=== PATIENT | male | born 1970 | race Two or more races ===

== ENCOUNTER 2018-03-18 15:07 | Emergency (ER) | payer MEDICAID ==
[~2018-03-18] VITALS: Ht 180.3 cm; Wt 90.7 kg
[~2018-03-18 15:07] MED LIST: BACTROBAN CR1 APPLIC TOPIC; CLINDAMYCIN HC300 MG ORAL; PROBIOTIC & AC1 EAC1 PO
[2018-03-18 15:39] VITALS: BP 134/82
--- NOTE | 2018-03-18 15:54 | Emergency Room Report ---
History of Present Illness General Chief Complaint: Wound Recheck/Suture Removal Source: Patient Present Illness HPI 47-year-old male patient presents ER for wound checks. Reports was seen in the ER 2 days ago and diagnosed with cellulitis at this right hand knuckle. Reports that he was given IV antibiotics and discharged with topical and oral antibiotics to home. Reports been taking the oral medication, pharmacy did not fill the topical. Reports symptoms have improved. Denies fever, chest pain, shortness of breath. Denies vomiting. Reports full range of motion of hand. His treated diabetes. Reports right-hand dominant. Allergies: Coded Allergies: No Known Allergies (Unverified , 03/16/18) Patient History Past Medical History: see triage record Reviewed Nursing Documentation: PMH: Agreed; PSxH: Agreed Nursing Documentation-PMH Past Medical History: No Stated History Review of Systems All Other Systems: negative except mentioned in HPI Physical Exam Vital Signs Date Time Temp Pulse Resp B/P (MAP) Pulse Ox O2 Delivery O2 Flow Rate FiO2 03/18/18 15:29 98.1 101 16 134/82 97 Room Air 98.1 Sp02 EP Interpretation: reviewed, normal General Appearance: well appearing, no apparent distress, alert, GCS 15, non- toxic Head: normocephalic, atraumatic Eyes: bilateral eye normal inspection, bilateral eye PERRL ENT: hearing grossly normal, normal pharynx, no angioedema, normal voice, uvula midline, moist mucus membranes Neck: full range of motion Respiratory: lungs clear, normal breath sounds, no rhonchi, no respiratory distress, no accessory muscle use, no wheezing, speaking full sentences Cardiovascular #1: regular rate, rhythm, no edema Cardiovascular #2: 2+ radial (R), 2+ radial (L) Musculoskeletal: back normal, digits/nails normal, gait/station normal, normal range of motion, non-tender, other - no fusiform swelling, not held in flexion or extension, no TTP over flexor tendon Psychiatric: mood/affect normal Skin: no rash, other - 1-2cm of erythema noted over dorsum of right hand near fourth metacarpal, unroofed blister noted over knuckle with dried tissue, no drainage, no surrounding edema in wrist or forearm, no drainage, no crepitus Medical Decision Making PA Attestation Dr. Beckett is my supervising Physician whom patient management has been discussed with. Diagnostic Impression: Primary Impression: Encounter for wound re-check ER Course Pt. presents to the ED requesting wound check of right hand. Ddx considered but are not limited to cellulitis, abscess, wound check, folliculitis. reports swelling, no tenderness to palpation over the flexor tendon, patient able to flex and extend the finger, not held in flexion or extension, low suspicion for flexor tenosynovitis. Vital signs: are WNL, pt. is afebrile ER COURSE: Reviewed previous patient chart. No history diabetes. No fever, vomiting, chest pain, shortness of breath, other acute symptoms, does not require admission or IV antibiotics at this time. Continue with outpatient regimen of antibiotics. Wound appears to be healing well, no surrounding erythema, edema. patient okay for continued outpatient treatment. Will provide Rx for prostration because patient was not able to fill medication previously prescribed. ER precautions given. Wound check in 5-7 days with primary care provider or ER. DISCHARGE: Continue taking medication as previously instructed Rx provide for Bacitracin At this time pt. is stable for d/c to home. Patient resting comfortably, in no acute distress, nontoxic appearing. Will provide printed patient care instructions and any necessary prescriptions. Care plan and follow up instructions have been discussed with the patient prior to discharge. Patient instructed to follow-up with primary care provider for further treatment and referral. Patient questions asked and answered. ER precautions given. Patient instructed to return to ER immediately for any new or worsening of symptoms including but not limited to fever, worsening of pain symptoms. - Please note that this Emergency Department Report was dictated using [employer] technology software, occasionally this can lead to erroneous entry secondary to interpretation by the dictation equipment. Last Vital Signs Date Time Temp Pulse Resp B/P (MAP) Pulse Ox O2 Delivery O2 Flow Rate FiO2 03/18/18 15:29 98.1 101 16 134/82 97 Room Air 98.1 Disposition: HOME, SELF-CARE Condition: Stable Scripts Bacitracin/Polymyxin B Sulfate (BACITRACIN-POLYMYXIN OINTMENT) 28.35 Gm Oint...g. 1 APPLIC TP BID, #28 GM Prov: Derrick Lucero 03/18/18 Patient Instructions: Wound Check Additional Instructions: Followup with primary care provider or return to ER in 5 -7 days for wound check. Take medications as perviously instructed. Patient questions asked and answered. ER precautions given, patient instructed to return to ER immediately for any new or worsening of symptoms. Derrick Lucero Mar 18, 2018 15:54
[2018-03-18] MEDS ORDERED: BACITRACIN-P28.35 GM TP (15:58)
[2018-03-18 16:02] VITALS: BP 134/82
== END 2018-03-18 16:02 | disposition home or self-care (01) ==
LOC: EMR 15:53
DX: Z51.89 Encounter for other specified aftercare (principal); L03.113 Cellulitis of right upper limb
CPT/HCPCS: 99282